=== PATIENT | female | born 1995 | race Two or more races ===

== ENCOUNTER 2024-02-29 17:29 | Observation (INO) | payer MEDICAID, SELFPAY ==
[2024-02-29 17:35] VITALS: BMI 36.0
[2024-02-29 17:41] VITALS: BP 116/67; PULSE 114
== END 2024-02-29 19:52 | disposition home or self-care (01) ==
PROVIDERS: Admitting Provider Specialist; PCP Specialist; Visit Provider Specialist
DX: O47.1 False labor at or after 37 completed weeks of gestation (principal); Z3A.39 39 weeks gestation of pregnancy
CPT/HCPCS: 59025; G0378

== ENCOUNTER 2024-03-06 14:05 | Inpatient (IN) | payer MEDICAID, SELFPAY ==
[2024-03-06] VITALS (76 sets, daily range): BP systolic 0–141; BP diastolic 0–86; PULSE 77–109; RESP 18; TEMP 36.7–37.2; O2SAT 88–99; BMI 36.2
[2024-03-06] MEDS: RINGERS LACTATED 1000 ML 1,000 ML 100 ML IV ×3 (14:50→20:43)
[2024-03-06 14:57] LABS: Basophils % (Auto) 0 % (0-2.5); Eosinophils # (Auto) 0.1 Thou/mm3 (0.0-0.5); Eosinophils % (Auto) 1 % (0-10); Hematocrit 36.8 % (36.0-46.0); Hemoglobin 12.3 g/dL (12.0-16.0); Immature Granulocytes % (Auto) 1 % (0-0); Immature Granulocytes Auto 0.09 Thou/mm3 (0.00-0.00); Lymphocytes # (Auto) 2.3 Thou/mm3 (1.0-4.8); Lymphocytes % (Auto) 21 % (10-50); Mean Corpuscular HGB Conc 33.4 g/dl (31.0-37.0); Mean Corpuscular Hemoglobin 28.1 pg (25.0-35.0); Mean Corpuscular Volume 84 fL (80-100); Monocytes # (Auto) 0.5 Thou/mm3 (0.0-0.8); Monocytes % (Auto) 4 % (0-12); Neutrophils # (Auto) 8.1 Thou/mm3 (1.8-7.7); Neutrophils % (Auto) 73 % (37-80); Nucleated Red Blood Cell % 0 /100 WBC (0); Platelet Count 349 Thou/mm3 (140-440); Red Blood Count 4.38 Miln/mm3 (4.00-5.20); White Blood Count 11.1 Thou/mm3 (3.6-11.0)
[2024-03-06] MEDS: MISOPROSTOL 50 mCg TABLET PO (15:21)
[2024-03-06 15:34] LABS: Syphilis Nonreactive (Nonreactive)
--- NOTE | 2024-03-06 16:52 | ESHP_ITS ---
RE: MELVI RUIZ : 1995 DATE OF ADMISSION: 03/06/2024 HISTORY OF PRESENT ILLNESS: This is a 28-year-old 3 para 1-1-0-2 with due date of 03/06/2024 with intrauterine of 40 weeks, who presents for induction of labor. The patient was seen in the office today and had a nonreactive non-stress test, so she was referred to maternal unit for induction of labor. care was uncomplicated. She reports normal movement. She denies any leaking or bleeding. She reports occasional contractions. The patient has a history of classical Hodgkin lymphoma treated at [facility] with chemotherapy, which she finished in 2022 and is in remission. Her care was complicated by labor, for which she received betamethasone on 01/24/2024 and 01/25/2024. She underwent maternal medicine ultrasound on 10/11/2023, which showed normal anatomy. She has borderline chronic hypertension, but does not take any medication. ALLERGIES: NO KNOWN DRUG ALLERGIES. MEDICATIONS: multivitamin 1 p.o. daily. SOCIAL HISTORY: She denies any alcohol, drug use or smoking. PAST MEDICAL HISTORY: Classical Hodgkin lymphoma stage III in remission, status post chemotherapy, A+AVD x6 cycles, last treatment 04/2022; migraine headaches; and borderline chronic hypertension. OBSTETRIC HISTORY: 2016, 40-week normal vaginal delivery, 6 pound 5 ounce male, no complications; 2021, 34 weeks, normal vaginal delivery, 3 pound 13 ounce female, induction of labor for Hodgkin's lymphoma diagnosed in and cholestasis of . PAST SURGICAL HISTORY: Denies. FAMILY HISTORY: Diabetes and hypertension. REVIEW OF SYSTEMS: She denies any chest pain, palpitations, cough, fever, shortness of breath or lower extremity pain. PHYSICAL EXAMINATION: VITAL SIGNS: Blood pressure 130/77, heart rate 101, respirations 18, temperature is 98.2, and weight 210 pounds. HEENT: Oropharynx and sclerae are clear. LUNGS: Clear to auscultation bilaterally. HEART: Regular rate and rhythm. ABDOMEN: Gravid, term size consistent with estimated weight 7.25 pounds. PELVIC: See RN notes. EXTREMITIES: Nontender. SKIN: No gross rashes or lesions. NEUROLOGIC: No focal deficits. ASSESSMENT AND PLAN: Intrauterine at 40 weeks and 0 days. Induction of labor. Anticipates spontaneous vaginal delivery. Informed consent was obtained. The patient is made aware of the risks, complications, alternatives, and benefits of the proposed procedure and she agrees. She is aware of the risk of operative vaginal delivery and delivery and agrees with these modes of delivery if indicated. DT: 14:28:59 TT: 16:51:00 Ref: [id number] - TID: [id number] MTDD
[2024-03-07] VITALS (96 sets, daily range): BP systolic 0–151; BP diastolic 0–85; PULSE 68–104; RESP 16–18; TEMP 36.7–36.9; O2SAT 82–99
[2024-03-07] MEDS: OXYTOCIN in NS 30 units 30 UNIT/500 ML BAG IV (00:53)
[2024-03-07] MEDS: RINGERS LACTATED 1000 ML 1,000 ML 100 ML IV (02:01)
[2024-03-07] MEDS: MISOPROSTOL 200 mCg TABLET 800 MCG PR (03:37)
[2024-03-07] MEDS: SODIUM CHLORIDE 0.9% 1000 ML 1,000 ML 100 ML IV (03:39)
--- NOTE | 2024-03-07 03:45 | ESDS_ITS ---
DS: Providers Provider Date of admission: 03/06/24 14:05 Primary care physician: FERNANDA Dunn Admitting Provider: Payam Zimmerman MD Attending Provider on Admission: Payam Zimmerman MD Attending Provider on DC: Payam Zimmerman MD Discharging Provider: Payam Zimmerman MD DS: Diagnosis Problem List Completed Was Problem List Reviewed/Reconciled?: Yes Summary/Hosp Course Time Spent with Patient Time attestation: Total time spent providing and/or coordinating discharge services: Exam Vital Signs Temp Pulse Resp BP Pulse Ox 99 F 96 18 132/85 H 98 03/06/24 19:01 03/07/24 03:30 03/06/24 19:01 03/07/24 03:30 03/07/24 03:40 Discharge Plan Plan Patient Disposition: HOME (Self Care) Patient condition on transfer: Stable Prescriptions/Referrals Prescriptions/Med Rec: New ibuprofen 600 mg tablet 600 mg PO Q6H PRN (Reason: pain) Qty: 30 0RF No Action Vitamin 27 mg iron- 800 mcg tablet 1 tab PO QDAY Referrals: Juan Claros FNP [Primary Care Provider] - Patient/Caregiver Discharge Instructions Discharge Activity: activity as tolerated Other Discharge Activity Instructions:: Follow up office 6 weeks. Print Language: Slovenian Stand Alone Forms: [employer] Award Info., Patient Portal Info Letter Planned Discharge Date 03/08/24
[2024-03-07] MEDS: METHYLERGONOVINE INJ 0.2 MG/ML VIAL IM (03:47)
[2024-03-07] MEDS: IBUPROFEN TAB 400 MG TABLET 800 MG PO ×2 (04:27→12:20)
--- NOTE | 2024-03-07 07:28 | OBDSUM_ITS ---
Data (Back) Data Hx Section: No : 3 Para: 2 Term: 1 : 1 : 0 Delivery Data (Back) Labor Data ROM Date: 03/07/24 ROM Time: 02:10 Rupture Type: SROM Delivery Data EDC: 03/06/24 EDC calculated by:: LMP/early US confirmation Labor Onset Stage 1 Date: 03/06/24 Labor Onset Stage 1 Time: 18:45 Labor Onset Stage 2 Date: 03/07/24 Labor Onset Stage 2 Time: 03:18 Delivery Date: 03/07/24 Delivery Time: 03:32 Gestational age (weeks): 40 Gestational age (days): 1 Placenta Delivery Date: 03/07/24 Placenta Delivery Time: 03:36 Delivered by: Payam Zimmerman Delivery nurse: Amanda Garica Other staff at delivery: Nurse Other staff at delivery: Betzy Cowan Delivery Method Delivery: Vaginal Delivery Type: Spontaneous Presentation: Vertex Position: OA Anesthesia Type Primary Anesthesia: Epidural Placenta Placenta Delivery: Spontaneous Placenta Cultures Obtained: No Placenta Sent for Examination: No Cord Sample: Cord Blood Obtained Episiotomy Episiotomy: None EBL Estimated blood loss (ml): 250 Umbilical Cord Umbilical Vessels: 3 Nuchal Cord: None Body Cord: None Additional Procedures None Complications Complications: Uterine atony [place] Data (Back) [place] Data Gender: Female Identification Band Number: [id number] Infant Weight Grams: 3430 1 Minute Total: 8 5 Minute Total: 9
[2024-03-07 10:20] LABS: Basophils # (Auto) 0.1 Thou/mm3 (0.0-0.2); Basophils % (Auto) 0 % (0-2.5); Eosinophils % (Auto) 0 % (0-10); Hematocrit 35.6 % (36.0-46.0); Hemoglobin 11.8 g/dL (12.0-16.0); Immature Granulocytes % (Auto) 1 % (0-0); Immature Granulocytes Auto 0.09 Thou/mm3 (0.00-0.00); Lymphocytes # (Auto) 2.7 Thou/mm3 (1.0-4.8); Lymphocytes % (Auto) 15 % (10-50); Mean Corpuscular HGB Conc 33.1 g/dl (31.0-37.0); Mean Corpuscular Volume 84 fL (80-100); Monocytes # (Auto) 0.6 Thou/mm3 (0.0-0.8); Monocytes % (Auto) 3 % (0-12); Neutrophils # (Auto) 14.3 Thou/mm3 (1.8-7.7); Neutrophils % (Auto) 81 % (37-80); Nucleated Red Blood Cell % 0 /100 WBC (0); Platelet Count 325 Thou/mm3 (140-440); RDW Standard Deviation 43.7 fL (36.4-46.3); Red Blood Count 4.22 Miln/mm3 (4.00-5.20); White Blood Count 17.7 Thou/mm3 (3.6-11.0)
[2024-03-07] MEDS: ACETAMINOPHEN 325 MG TABLET 650 MG PO (19:49)
[2024-03-08 03:00] VITALS: BP 115/66; PULSE 74; RESP 18; TEMP 37; O2SAT 98
[2024-03-08] MEDS: IBUPROFEN TAB 400 MG TABLET 800 MG PO (03:08)
--- NOTE | 2024-03-08 04:38 | ESPR_ITS ---
RE: MELVI RUIZ : 1995 DATE OF SERVICE: 03/08/2024 S: day #1, the patient denies any problem or complaints. She is voiding. She is ambulating. She tolerating diet. She is fasting flatus. She denies any excessive vaginal bleeding. She denies any dizziness or lightheadedness. She denies any chest pain, palpitations, shortness of breath or lower extremity pain. She denies any depression or anxiety. O: Vital Signs: Blood pressure 115/66, heart rate 77, respirations 18, temperature 98.6, pulse oximetry 98% on room air. Lungs: Clear to auscultation bilaterally. Heart: Regular rate and rhythm. Abdomen: Fundus is firm, nontender. Extremities: Nontender. LABORATORY DATA: Hemoglobin pre-delivery is 12.3 and post delivery is 11.8. A: day #1, status post spontaneous vaginal delivery. P: Discharge home. Discharge instructions given. Follow up in the office in six weeks. DT: 04:21:40 TT: 04:37:00 Ref: [id number] - TID: [id number]
[2024-03-08 08:20] VITALS: BP 118/83; PULSE 92; RESP 18; TEMP 36.8; O2SAT 98
[2024-03-08 11:35] VITALS: BP 120/82; PULSE 96; RESP 18; TEMP 36.8
== END 2024-03-08 13:40 | disposition home or self-care (01) | DRG 560 ==
LOC: S4SX 03-07 04:04 → S4NX 03-07 06:00
PROVIDERS: Admitting Provider Specialist; PCP Nurse Practitioner; Visit Provider Specialist
DX: O76 Abnormality in fetal heart rate and rhythm complicating labor and delivery (principal); Z3A.40 40 weeks gestation of pregnancy; Z37.0 Single live birth; O62.2 Other uterine inertia; Z85.71 Personal history of Hodgkin lymphoma; Z92.21 Personal history of antineoplastic chemotherapy
CPT/HCPCS: 36415; 59409; 85025; 86780; 86850; 86900; 86901; J2210; J2590; J2795; J7030; J7120; S0191; A9270